=== PATIENT | male | born 1995 | race Caucasian/White ===

== ENCOUNTER 2017-02-09 16:59 | Emergency (ER) | payer MEDICAID, OTHER ==
[2017-02-09] MEDS ORDERED: PROPRANOLOL HCL 20 MG TABLET PO SCH (17:00)
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
[2017-02-09 17:45] LABS: Hematocrit 45.4 % (42.0-52.0); Hemoglobin 15.2 gm/dL (13.5-18.0); Mean Corpuscular Hemoglobin 27.8 pg (27-31); Mean Corpuscular Hgb Conc 33.5 g/dl (32-36); Mean Platelet Volume 8.8 fl (6.0-9.5); Neutrophil # 11.2 K/mm3 (1.3-6.0); Neutrophil % 69.7 % (42-75.0); Platelet Count 384 K/mm3 (150-450); Red Blood Count 5.47 M/mm3 (4.7-6.0); White Blood Count 16.1 K/mm3 (4.0-10.5)
--- OUTSIDE RECORDS SUMMARY | 2017-02-09 17:58 | XMS REPORT | Continuity of Care Document ---
:1995 Author Organization [facility] ([facility]) [place] [address] Phone [phone] Care Team Providers Name Role Phone Unavailable Primary Care Provider Unavailable Source Comments This disclosure is being made pursuant to the Care Everywhere program, applicable federal and state laws, and may not contain all informaitonavailable regarding this patient.[facility] ([facility]) Active Allergies and Adverse Reactions Not on File Current Medications Not on file Active Problems Not on file Social History Tobacco Use Types Packs/Day Years Used Date Never Assessed Plan of Care Health Maintenance Due Date Last Done Comments Hepatitis B Vaccine (1 of 3 - Primary Series) 1996 HPV Vaccine (1 of 3 - Male 3 Dose Series) 2007 Tdap Vaccine 2007 Meningococcal Vaccine (1 of 1) 2012 Lipid Disorder Screening 2014 MMR Vaccine 2014 Td Vaccine 2014 Varicella Vaccine (1 of 2 - Adult - No Evidence of 2014 Immunity) Influenza Vaccine: Seasonal (#1) 04/11/2016 Results from Last 3 Months Not on file
[2017-02-09 18:04] LABS: ALT 39 U/L (19-67); AST 18 U/L (0-48); Albumin * 3.9 gm/dl (3.4-5.0); Alkaline Phosphatase * 126 U/L (50-170); Anion Gap 13.7 mmol/L (6.8-13.8); BUN/Creatinine Ratio 12.1 (9.0-21.6); Bilirubin, Total 0.4 mg/dL (0.0-1.1); Blood Urea Nitrogen 13 mg/dL (6-23); Ca. Corrected For Albumin 8.7 mg/dL (8.4-10.2); Calcium * 8.9 mg/dL (7.9-10.9); Chloride 104 mmol/L (97-106); Glucose * 141 mg/dL (70-110); Potassium 3.7 mmol/L (3.4-4.6); Salicylate Less than 2.8 mg/dL (2.8-20.0); Sodium 143 mmol/L (132-142); TSH * 2.104 uIU/mL (0.516-4.13); Total Protein 7.6 gm/dL (6.2-8.2)
[2017-02-09 18:25] LABS: Urine Bilirubin Negative (NEGATIVE); Urine Blood Negative /ul (NEGATIVE); Urine Ketone Negative (NEGATIVE); Urine Nitrite Negative (NEGATIVE); Urine Protein 15 mg/dL (NEGATIVE); Urine Urobilinogen Normal (NORMAL)
[2017-02-09 18:37] LABS: Cocaine Ur Negative (NEGATIVE); Urine Appearance Clear; Urine Bacteria None Seen; Urine Barbiturate Negative (NEGATIVE); Urine Benzodiazepines Negative (NEGATIVE); Urine Color Yellow; Urine Opiates Negative (NEGATIVE); Urine PCP Negative (NEGATIVE); Urine RBC None Seen /hpf (0-5); Urine THC Negative (NEGATIVE); Urine WBC None Seen /hpf (0-5)
[2017-02-10 03:31] VITALS: BP 139/77
== END 2017-02-10 04:07 | disposition short-term general hospital (02) ==
LOC: ER 16:59
DX: R45.851 Suicidal ideations (principal); F41.8 Other specified anxiety disorders
CPT/HCPCS: 36415; 80053; 80307; 81001; 84443; 85025; 93005; 99284; G0480; G0481

== ENCOUNTER 2017-11-13 11:41 | Emergency (ER) | payer MEDICAID, OTHER ==
[2017-11-13 12:04] VITALS: BP 144/86
== END 2017-11-13 13:08 | disposition left against medical advice (07) ==
LOC: ER 11:41
DX: Z53.21 Procedure and treatment not carried out due to patient leaving prior to being seen by health care provider (principal)